=== PATIENT | female | born 1975 | race African-American/Black ===

== ENCOUNTER 2016-10-10 07:51 | Emergency (ER) | payer OTHER | END 2016-10-10 08:09 | disposition home or self-care (01) | LOC: NAV ERS 07:51 | DX: K08.89 Other specified disorders of teeth and supporting structures (principal) | CPT/HCPCS: 99282 ==

== ENCOUNTER 2017-01-05 12:11 | Emergency (ER) | payer OTHER, SELFPAY ==
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
== END 2017-01-05 13:27 | disposition home or self-care (01) ==
LOC: NAV ERS 12:11
DX: S63.502A Unspecified sprain of left wrist, initial encounter (principal); Z87.442 Personal history of urinary calculi; Y04.8XXA Assault by other bodily force, initial encounter

== ENCOUNTER 2017-01-30 17:08 | Emergency (ER) | payer SELFPAY | END 2017-01-30 17:45 | disposition home or self-care (01) | LOC: NAV ERS 17:08 | DX: H10.9 Unspecified conjunctivitis (principal) | CPT/HCPCS: 99282 ==

== ENCOUNTER 2017-06-26 19:34 | Emergency (ER) | payer OTHER, SELFPAY ==
[2017-06-26] MEDS ORDERED: Ketorolac Tromethamine 60 MG/2 ML VIAL ONE (19:50)
== END 2017-06-26 20:15 | disposition home or self-care (01) ==
LOC: NAV ERS 19:34
DX: M54.5 Low back pain (principal); V43.62XA Car passenger injured in collision with other type car in traffic accident, initial encounter; Y92.410 Unspecified street and highway as the place of occurrence of the external cause
CPT/HCPCS: 96372; J1885

== ENCOUNTER 2017-10-06 16:54 | Emergency (ER) | payer OTHER, SELFPAY ==
[2017-10-06] MEDS ORDERED: Ondansetron HCl/PF 4 MG/2 ML Vial ONE (17:18)
[2017-10-06] MEDS ORDERED: Fentanyl 100 MCG/2 ML VIAL ONE (17:18)
[2017-10-06] MEDS ORDERED: Famotidine/PF 20 mg/2ml Vial ONE (17:18)
[2017-10-06] MEDS ORDERED: Ketorolac Tromethamine 30 MG/ML VIAL ONE (17:18)
[2017-10-06 17:30] LABS: Bilirubin Negative (Negative); Blood, Urine Trace (Negative); Clarity Clear (Clear); Glucose, Urine (Dipstick) Negative (Negative); Leukocyte Negative (Negative); Nitrite Negative (Negative); Protein, Urine (Dipstick) 30 mg/dL (Neg-Trace); Specific Gravity, Urine 1.015 (1.005-1.030)
[2017-10-06 17:35] LABS: #Basophils 0.1 thou/uL (0.0-0.2); #Monocytes 0.6 thou/uL (0.11-0.59); #Neutrophils 10.2 thou/uL (1.40-6.50); %Basophils 0.6 % (0.0-1.0); %Eosinophils 0.2 % (0.0-10.0); %Lymphocytes 15.4 % (21.0-51.0); %Monocytes 4.8 % (0.0-10.0); Hemoglobin 14.1 g/dL (12.0-16.0); Mean Corpuscular HGB CONC 34.3 g/dL (32.0-36.0); Mean Corpuscular Hemoglobin 31.4 pg (27.0-31.0); Mean Corpuscular Volume 91.6 fl (81.0-99.0); Mean Platelet Volume 8.3 fL (7.4-10.4); Platelet Count 332 thou/uL (130-400); RBC Distribution Width 10.9 % (11.5-14.5); White Blood Cell (WBC) Count 12.9 thou/uL (4.8-10.8)
[2017-10-06 17:37] LABS: pH, Urine Greater/Equal 9.0 (5.0-9.0)
[2017-10-06 17:39] LABS: Bacteria/HPF Rare-Few HPF (None Seen); RBC/HPF 0-3 HPF (0-3); WBC/HPF 0-3 HPF (0-3)
[2017-10-06 17:47] LABS: Anion Gap 14 mmol/L (10-20); BUN (Urea Nitrogen) 14 mg/dL (7.0-18.7); Calc. Creatinine Clearance 0 mL/min (70-130); Calcium 9.4 mg/dL (7.8-10.44); Carbon Dioxide 25 mmol/L (22-29); Chloride 103 mmol/L (98-107); Estimated GFR-MDRD Greater than 90; Glucose 101 mg/dL (70-105); Potassium 3.7 mmol/L (3.5-5.1); Sodium 138 mmol/L (136-145)
== END 2017-10-06 18:16 | disposition home or self-care (01) ==
LOC: NAV ERS 16:54
DX: R11.2 Nausea with vomiting, unspecified (principal); M72.2 Plantar fascial fibromatosis
CPT/HCPCS: 80048; 81003; 81015; 85025; 87804; 96374; 96375; J1885; J2405; J3010; S0028

== ENCOUNTER 2017-10-28 14:54 | Emergency (ER) | payer OTHER ==
[2017-10-28] MEDS ORDERED: Ibuprofen 800 MG TAB ONE (15:20)
--- NOTE | 2017-10-28 15:43 | RAD ---
LEFT KNEE FOUR VIEWS: HISTORY: A 42-year-old female with a history of pain, left knee, following a fall. FINDINGS: No evidence for acute fracture or dislocation. 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 IMPRESSION: 1. No evidence of acute fracture or dislocation. 2. 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 POS: [facility]
== END 2017-10-28 15:50 | disposition home or self-care (01) ==
LOC: NAV ERS 14:54
DX: S80.02XA Contusion of left knee, initial encounter (principal); D16.22 Benign neoplasm of long bones of left lower limb; W19.XXXA Unspecified fall, initial encounter

== ENCOUNTER 2017-11-08 10:21 | Emergency (ER) | payer OTHER, SELFPAY ==
--- NOTE | 2017-11-08 12:13 | RAD ---
LEFT HAND 3 VIEWS: HISTORY: Fall. Pain thenar area. COMPARISON: None. FINDINGS: No acute fracture or malalignment. Soft tissues are unremarkable. Mild volar soft tissue edema of the planar eminence. IMPRESSION: Soft tissue edema. No acute fracture or malalignment. POS: [facility]
== END 2017-11-08 11:32 | disposition home or self-care (01) ==
LOC: NAV ERS 10:21
DX: S63.92XA Sprain of unspecified part of left wrist and hand, initial encounter (principal); S90.01XA Contusion of right ankle, initial encounter; S30.0XXA Contusion of lower back and pelvis, initial encounter; Z79.899 Other long term (current) drug therapy; W01.0XXA Fall on same level from slipping, tripping and stumbling without subsequent striking against object, initial encounter; Y99.0 Civilian activity done for income or pay

== ENCOUNTER 2018-06-03 05:55 | Emergency (ER) | payer OTHER ==
[2018-06-03] MEDS ORDERED: Ketorolac Tromethamine 60 MG/2 ML VIAL ONE (06:23)
--- NOTE | 2018-06-03 11:18 | RAD ---
3 VIEWS LEFT SHOULDER: Date: 06/03/18 INDICATION: Left shoulder sprain after moving furniture. FINDINGS: AC joint and glenohumeral alignment is normal appearing. Visualized left lung is clear. No acute frac ture or subluxation is evident. IMPRESSION: No acute osseous abnormality. POS: [facility]
== END 2018-06-03 06:48 | disposition home or self-care (01) ==
LOC: NAV ERS 05:55
DX: S46.912A Strain of unspecified muscle, fascia and tendon at shoulder and upper arm level, left arm, initial encounter (principal); M62.838 Other muscle spasm; X50.9XXA Other and unspecified overexertion or strenuous movements or postures, initial encounter
CPT/HCPCS: 96372; J1885

== ENCOUNTER 2018-07-31 08:55 | Emergency (ER) | payer OTHER ==
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
== END 2018-07-31 09:44 | disposition home or self-care (01) ==
LOC: NAV ERS 08:55
PROC: 7W0 Osteopathic, Anatomical Regions, Treatment (ICD-10-PCS; principal; 2018-07-31)
DX: S63.614A Unspecified sprain of right ring finger, initial encounter (principal); X50.1XXA Overexertion from prolonged static or awkward postures, initial encounter

== ENCOUNTER 2018-12-16 15:24 | Outpatient (CLI) | payer OTHER ==
--- NOTE | 2018-12-16 15:57 | RAD ---
EXAM: LEFT HEEL TWO VIEWS: 12/16/18 HISTORY: Left heel pain. FINDINGS/IMPRESSION: No fracture or dislocation. No significant calcaneal enthesophyte. If there is clinical concern for p lantar fasciitis, follow-up MRI study would be of benefit. POS: [facility]
== END 2018-12-16 15:25 | disposition home or self-care (01) ==
LOC: NAV RAD 15:24
PROVIDERS: ATTEND Nurse Practitioner Adult Health
DX: M79.672 Pain in left foot (principal)

== ENCOUNTER 2020-07-18 04:00 | Emergency (ER) | payer OTHER, SELFPAY ==
[2020-07-18] MEDS ORDERED: Acetaminophen 500 MG TAB ONE (04:19)
[2020-07-18] MEDS ORDERED: methylPREDNISolone Acetate 40 mg/ml Vial ONE (05:02)
== END 2020-07-18 05:15 | disposition home or self-care (01) ==
LOC: NAV ERS 04:00
DX: J06.9 Acute upper respiratory infection, unspecified (principal); R11.0 Nausea
CPT/HCPCS: 87081; 87430; 87804; 96372; 99283; J2920

== ENCOUNTER 2020-07-20 10:06 | Emergency (ER) | payer SELFPAY ==
[2020-07-20 23:07] LABS: SARS-CoV-2 MS2 Positive; SARS-CoV-2 N Gene Negative; SARS-CoV-2 S Gene Negative; SARS-CoV-2 by NAA Not Detected (NotDetected); SARS-CoV-2 orf1ab Negative
== END 2020-07-20 10:40 | disposition home or self-care (01) ==
LOC: NAV ERS 10:06
DX: J02.0 Streptococcal pharyngitis (principal); Z20.828 Contact with and (suspected) exposure to other viral communicable diseases
CPT/HCPCS: 87635; 99284; U0003

== ENCOUNTER 2022-02-26 13:10 | Emergency (ER) | payer SELFPAY ==
[2022-02-26] MEDS ORDERED: Sulfameth/Trimethoprim DS 800-160mg TAB ONE (13:58)
== END 2022-02-26 14:04 | disposition home or self-care (01) ==
LOC: NAV ERS 13:12
DX: L03.314 Cellulitis of groin (principal)

== ENCOUNTER 2022-09-24 07:45 | Emergency (ER) | payer SELFPAY ==
[2022-09-24] MEDS ORDERED: Boostrix 0.5 ML (Tdap) VIAL (>/=7 yrs of age) ONE (08:36)
[2022-09-24] MEDS ORDERED: Lidocaine 1% (PF) 30 ML VIAL ONE (08:36)
[2022-09-24] MEDS ORDERED: Bacitracin 1 PK ONE (09:08)
== END 2022-09-24 09:15 | disposition home or self-care (01) ==
LOC: NAV ERS 07:45
DX: S71.112A Laceration without foreign body, left thigh, initial encounter (principal); S10.91XA Abrasion of unspecified part of neck, initial encounter; X99.0XXA Assault by sharp glass, initial encounter; Y92.009 Unspecified place in unspecified non-institutional (private) residence as the place of occurrence of the external cause; Z23 Encounter for immunization
CPT/HCPCS: 12002; 90471; 90715; J2001

== ENCOUNTER 2023-09-27 06:23 | Emergency (ER) | payer SELFPAY ==
[2023-09-27 06:37] LABS: Bilirubin Negative (Negative); Blood, Urine Trace (Negative); Clarity Clear (Clear); Glucose, Urine (Dipstick) Negative (Negative); Ketone, Urine Negative (Negative); Leukocyte Negative (Negative); Nitrite Negative (Negative); Protein, Urine (Dipstick) Negative (Neg-Trace); pH, Urine 5.5 (5.0-9.0)
[2023-09-27 06:39] LABS: Pregnancy Test - Urine (BHCG) Negative (Negative); Pregu Control Background? CLEAR/WHITE (CLR/WHITE); Pregu Control Bar Appear? YES (CONTROL BAR); Specific Gravity 1.024 (1.002-1.036); Specific Gravity, Urine 1.024 (1.002-1.036)
[2023-09-27 06:46] LABS: Bacteria/HPF 1+ HPF (None Seen); CAUTI Indications for Culture Pelvic or flank pain; RBC/HPF 0-3 HPF (0-3); Urine Culture Reflex No No; WBC/HPF None Seen HPF (0-3)
[2023-09-27] MEDS ORDERED: Ondansetron PF 4 MG/2 ML Vial ONE (06:59)
[2023-09-27] MEDS ORDERED: Sodium Chloride 0.9% 1,000 ML ONE (06:59)
[2023-09-27] MEDS ORDERED: Morphine 4 MG/ML VIAL ONE (06:59)
[2023-09-27] MEDS ORDERED: Ketorolac Tromethamine 30 MG (1 mL) VIAL ONE (06:59)
[2023-09-27 07:13] LABS: #Basophils 0.1 thou/uL (0.0-0.2); #Eosinphils 0.1 thou/uL (0.0-0.7); #Monocytes 1.1 thou/uL (0.11-0.59); #Neutrophils 5.9 thou/uL (1.40-6.50); %Basophils 0.6 % (0.0-1.0); %Lymphocytes 29.2 % (21.0-51.0); %Monocytes 10.8 % (0.0-10.0); %Neutrophils 58.4 % (42.0-75.0); Hematocrit 41.3 % (36.0-47.0); Hemoglobin 14.1 g/dL (12.0-16.0); Mean Corpuscular HGB CONC 34.1 g/dL (32.0-36.0); Mean Corpuscular Volume 93.7 fl (78.0-98.0); Mean Platelet Volume 7.1 fL (7.4-10.4); Platelet Count 305 10x3/uL (130-400); RBC Distribution Width 11.3 % (11.5-14.5); Red Blood Cell (RBC) Count 4.41 mill/uL (4.20-5.40); White Blood Cell (WBC) Count 10.1 10x3/uL (4.8-10.8)
[2023-09-27 07:27] LABS: ALT (SGPT) 10 U/L (8-55); AST (SGOT) 14 U/L (5-34); Albumin 4.2 g/dL (3.5-5.0); Alkaline Phosphatase 69 U/L (40-110); Anion Gap 12 mmol/L (10-20); BUN (Urea Nitrogen) 14 mg/dL (7.0-18.7); Bilirubin, Total 0.5 mg/dL (0.2-1.2); Calc. Creatinine Clearance 0 mL/min (70-130); Calcium 9.1 mg/dL (7.8-10.44); Carbon Dioxide 27 mmol/L (22-29); Chloride 103 mmol/L (98-107); Estimated GFR 92; Globulin 4.2 g/dL (2.4-3.5); Glucose 91 mg/dL (70-105); Potassium 4.1 mmol/L (3.5-5.1); Protein, Total 8.4 g/dL (6.0-8.3); Sodium 138 mmol/L (136-145)
[2023-09-27] MEDS ORDERED: Iopamidol 370 76% 100 ML VIAL ONE (09:00)
== END 2023-09-27 09:30 | disposition short-term general hospital (02) ==
LOC: NAV ERS 06:23
DX: D25.9 Leiomyoma of uterus, unspecified (principal)
CPT/HCPCS: 74177; 80053; 81001; 81025; 85025; 96374; 96375; J1885; J2270; J2405; J7050; Q9967

== ENCOUNTER 2024-01-19 07:18 | Emergency (ER) | payer OTHER, SELFPAY ==
[2024-01-19 07:57] LABS: #Basophils 0.1 thou/uL (0.0-0.2); #Eosinphils 0.1 thou/uL (0.0-0.7); #Lymphocytes 2.4 thou/uL (1.20-3.40); #Monocytes 0.8 thou/uL (0.11-0.59); #Neutrophils 3.9 thou/uL (1.40-6.50); %Eosinophils 1.8 % (0.0-10.0); %Lymphocytes 33.2 % (21.0-51.0); %Monocytes 10.5 % (0.0-10.0); %Neutrophils 53.3 % (42.0-75.0); Hematocrit 40.8 % (36.0-47.0); Hemoglobin 13.1 g/dL (12.0-16.0); Mean Corpuscular HGB CONC 32.1 g/dL (32.0-36.0); Mean Corpuscular Hemoglobin 30.2 pg (27.0-31.0); Mean Corpuscular Volume 94.3 fl (78.0-98.0); Mean Platelet Volume 6.8 fL (7.4-10.4); Platelet Count 296 10x3/uL (130-400); RBC Distribution Width 10.8 % (11.5-14.5); Red Blood Cell (RBC) Count 4.32 mill/uL (4.20-5.40); White Blood Cell (WBC) Count 7.3 10x3/uL (4.8-10.8)
[2024-01-19] MEDS ORDERED: Ketorolac Tromethamine 30 MG (1 mL) VIAL ONE (08:05)
[2024-01-19 08:11] LABS: Anion Gap 13 mmol/L (10-20); BUN (Urea Nitrogen) 17 mg/dL (7.0-18.7); Calc. Creatinine Clearance 0 mL/min (70-130); Carbon Dioxide 22 mmol/L (22-29); Chloride 107 mmol/L (98-107); Potassium 3.9 mmol/L (3.5-5.1); Sodium 138 mmol/L (136-145)
[2024-01-19 08:12] LABS: ALT (SGPT) 12 U/L (8-55); AST (SGOT) 16 U/L (5-34); Albumin 3.9 g/dL (3.5-5.0); Alkaline Phosphatase 57 U/L (40-110); Bilirubin, Total 0.7 mg/dL (0.2-1.2); Calcium 8.9 mg/dL (7.8-10.44); Estimated GFR 87; Globulin 3.8 g/dL (2.4-3.5); Glucose 90 mg/dL (70-105); Protein, Total 7.7 g/dL (6.0-8.3)
[2024-01-19] MEDS ORDERED: Sodium Chloride 0.9% 1,000 ML ONE (08:14)
[2024-01-19 08:47] LABS: Bilirubin Negative (Negative); Blood, Urine Trace (Negative); Clarity Clear (Clear); Glucose, Urine (Dipstick) Negative (Negative); Ketone, Urine Trace mg/dL (Negative); Leukocyte Negative (Negative); Nitrite Negative (Negative); Protein, Urine (Dipstick) Negative (Neg-Trace); Specific Gravity, Urine 1.025 (1.005-1.030)
[2024-01-19 08:54] LABS: Bacteria/HPF Rare-Few HPF (None Seen); CAUTI Indications for Culture Pelvic or flank pain; RBC/HPF None Seen HPF (0-3); Squamous Epithelial 0-3 HPF (0-3); Urine Culture Reflex No No; WBC/HPF None Seen HPF (0-3)
[2024-01-19 08:55] LABS: BHCG - Serum Negative (NEGATIVE); Pregs Control Bar Appear? YES (CONTROL BAR)
== END 2024-01-19 09:50 | disposition home or self-care (01) ==
LOC: NAV ERS 07:18
DX: M54.50 Low back pain, unspecified (principal)
CPT/HCPCS: 74176; 80053; 81001; 84703; 85025; 96374; J1885; J7050

== ENCOUNTER 2024-06-27 09:25 | Emergency (ER) | payer OTHER ==
[2024-06-27] MEDS ORDERED: Morphine 4 MG/ML VIAL ONE (10:27)
[2024-06-27] MEDS ORDERED: Ondansetron PF 4 MG/2 ML Vial ONE (10:27)
[2024-06-27] MEDS ORDERED: Acetaminophen 500 MG TAB ONE (10:27)
[2024-06-27] MEDS ORDERED: Lactated Ringer's 1,000 ML ONE (10:27)
[2024-06-27 10:48] LABS: Bilirubin Negative (Negative); Blood, Urine Trace (Negative); Clarity Clear (Clear); Glucose, Urine (Dipstick) Negative (Negative); Ketone, Urine Negative (Negative); Leukocyte Negative (Negative); Nitrite Negative (Negative); Protein, Urine (Dipstick) Negative (Neg-Trace); Urobilinogen 0.2 mg/dL (Less than 2); pH, Urine 5.5 (5.0-9.0)
[2024-06-27 10:50] LABS: #Basophils 0.1 thou/uL (0.0-0.2); #Lymphocytes 1.2 thou/uL (1.20-3.40); #Monocytes 0.6 thou/uL (0.11-0.59); #Neutrophils 6.8 thou/uL (1.40-6.50); %Basophils 0.9 % (0.0-1.0); %Eosinophils 0.1 % (0.0-10.0); %Lymphocytes 13.7 % (21.0-51.0); %Monocytes 6.6 % (0.0-10.0); %Neutrophils 78.8 % (42.0-75.0); Hematocrit 45.3 % (36.0-47.0); Hemoglobin 15.4 g/dL (12.0-16.0); Mean Corpuscular Hemoglobin 31.5 pg (27.0-31.0); Mean Corpuscular Volume 92.4 fl (78.0-98.0); Mean Platelet Volume 6.8 fL (7.4-10.4); Platelet Count 375 10x3/uL (130-400); RBC Distribution Width 10.5 % (11.5-14.5); White Blood Cell (WBC) Count 8.7 10x3/uL (4.8-10.8)
[2024-06-27 11:02] LABS: Anion Gap 17 mmol/L (10-20); BUN (Urea Nitrogen) 17 mg/dL (7.0-18.7); Calc. Creatinine Clearance 0 mL/min (70-130); Calcium 9.3 mg/dL (7.8-10.44); Carbon Dioxide 22 mmol/L (22-29); Chloride 101 mmol/L (98-107); Estimated GFR 84; Glucose 91 mg/dL (70-105); Potassium 3.8 mmol/L (3.5-5.1); Sodium 136 mmol/L (136-145)
[2024-06-27 11:05] LABS: ALT (SGPT) 18 U/L (8-55); AST (SGOT) 22 U/L (5-34); Alkaline Phosphatase 60 U/L (40-110); Bilirubin, Direct 0.3 mg/dL (0.1-0.3); Lipase 22 U/L (8-78); Protein, Total 8.7 g/dL (6.0-8.3)
[2024-06-27 11:24] LABS: Bacteria/HPF Rare-Few HPF (None Seen); CAUTI Indications for Culture Pelvic or flank pain; RBC/HPF 0-3 HPF (0-3); WBC/HPF 0-3 HPF (0-3)
[2024-06-27 11:26] LABS: Urine Culture Reflex No No
[2024-06-27 11:29] LABS: Pregnancy Test - Urine (BHCG) Negative (Negative); Pregu Control Background? CLEAR/WHITE (CLR/WHITE); Pregu Control Bar Appear? YES (CONTROL BAR)
== END 2024-06-27 12:50 | disposition home or self-care (01) ==
LOC: NAV ERS 09:25
DX: A08.4 Viral intestinal infection, unspecified (principal)
CPT/HCPCS: 74176; 80048; 80076; 81001; 81025; 83605; 83690; 85025; 93005; 96361; 96374; 96375; J2272; J2405; J7120

== ENCOUNTER 2025-07-26 17:21 | Emergency (ER) | payer OTHER | END 2025-07-26 18:13 | disposition home or self-care (01) | LOC: NAV ERS 17:21 | DX: M71.21 Synovial cyst of popliteal space [Baker], right knee (principal) | CPT/HCPCS: 99282 ==